=== PATIENT | female | born 1990 | race Caucasian/White ===

== ENCOUNTER 2019-12-24 17:16 | Emergency (ER) | payer SELFPAY ==
[2019-12-24] MEDS ORDERED: CEPHALEXIN 500 MG CAPSULE PO ONE (17:56)
--- NOTE | 2019-12-24 17:58 | ER Document Report ---
ED Medical Screen (RME) - General Chief Complaint: Leg Injury Stated Complaint: LEFT LEG PAIN, SWELLING Time Seen by Provider: 12/24/19 17:51 Mode of Arrival: Ambulatory Information source: Patient Notes: HPI; 29-year-old female with no previous medical problems presents emergency room with a questionable insect bite to her left calf that she noticed 2 days ago. Increasing pain and swelling today. Also complaining of pain in her left groin area that radiates down her leg. Denies any other trauma or injury. Taking ibuprofen with some relief. No medications today. Denies any fevers. No discharge or draining. Tetanus is up-to-date. PE: Alert and oriented x3. Mild distress noted. 4 x 3 cm area of erythema to her left lower calf. Warm but nontender to palpation. No active discharge or draining noted. Positive left pedal pulse. I have greeted and performed a rapid initial assessment of this patient. A comprehensive ED assessment and evaluation of the patient, analysis of test results and completion of the medical decision making process will be conducted by additional ED providers. I have specifically instructed the patient or family members with the patient to immediately return to any nursing staff should anything change in the patient's condition or with their chief complaint. TRAVEL OUTSIDE OF THE [place] IN LAST 30 DAYS: No - Related Data Allergies/Adverse Reactions: No Known Allergies Allergy (Unverified 12/24/19 17:46) Past Medical History - Social History Frequency of alcohol use: None Drug Abuse: Marijuana Past Surgical History: Reports: Hx Abdominal Surgery - intusseption repair, Hx Appendectomy, Hx Breast Surgery Physical Exam - Vital signs Vitals: Temp Pulse Resp BP Pulse Ox 98.5 F 68 16 134/76 H 100 12/24/19 17:24 12/24/19 17:24 12/24/19 17:24 12/24/19 17:24 12/24/19 17:24 Course - Vital Signs Vital signs: Temp Pulse Resp BP Pulse Ox 98.5 F 68 16 134/76 H 100 12/24/19 17:47 12/24/19 17:24 12/24/19 17:24 12/24/19 17:24 12/24/19 17:24
[2019-12-24] MEDS ORDERED: DEXAMETHASONE 4 MG TABLET PO ONE (18:33)
--- NOTE | 2019-12-24 18:34 | ER Document Report ---
HPI - HPI Patient complains to provider of: Insect bite Time Seen by Provider: 12/24/19 17:51 Onset: Other - 3 days Onset/Duration: Worse Quality of pain: Achy Pain Level: 3 Context: Patient states that she was bit by an insect 3 days ago. Patient denies any possible tick bite. Patient states the area of redness has started to increase around the insect bite. Patient complains of left knee and left groin pain. Patient does state she has been holding her leg elevated in an awkward position to prevent pressure being applied to the insect bite. Patient denies any fever. Associated Symptoms: Other - Insect bite. denies: Fever Exacerbated by: Denies Relieved by: Denies Similar symptoms previously: No Recently seen / treated by doctor: No - ROS ROS below otherwise negative: Yes Systems Reviewed and Negative: Yes All other systems reviewed and negative - CONSTITUTIONAL Constitutional: DENIES: Fever, Chills - NEURO Neurology: DENIES: Weakness - MUSCULOSKELETAL Musculoskeletal: REPORTS: Extremity pain - left groin to knee - DERM Skin Color: Erythema Notes: Insect bite Past Medical History - General Information source: Patient - Social History Smoking Status: Former Smoker Frequency of alcohol use: None Drug Abuse: Marijuana Occupation: None Lives with: Family Family History: Reviewed & Not Pertinent Patient has homicidal ideation: No - Medical History Medical History: Negative Past Surgical History: Reports: Hx Abdominal Surgery - intusseption repair, Hx Appendectomy, Hx Breast Surgery Vertical Provider Document - CONSTITUTIONAL Agree With Documented VS: Yes Exam Limitations: No Limitations General Appearance: WD/WN, No Apparent Distress - INFECTION CONTROL TRAVEL OUTSIDE OF THE [place] IN LAST 30 DAYS: No - HEENT HEENT: Atraumatic, Normal ENT Exam, Normocephalic - NECK Neck: Normal Inspection, Supple. negative: Lymphadenopathy-Left, Lymphadenopathy-Right - RESPIRATORY Respiratory: Breath Sounds Normal, No Respiratory Distress - CARDIOVASCULAR Cardiovascular: Regular Rate, Regular Rhythm Pulses: Normal: Dorsalis pedis - BACK Back: Normal Inspection - MUSCULOSKELETAL/EXTREMETIES Musculoskeletal/Extremeties: MAEW, FROM, Non-Tender - NEURO Level of Consciousness: Awake, Alert, Appropriate Motor/Sensory: No Motor Deficit - DERM Integumentary: Warm, Dry. negative: Abscess Notes: Insect bite to posterior left ankle with surrounding erythema, no fluctuance, no calor Course - Re-evaluation Re-evalutation: 12/24/19 18:35 Patient with what appears to be swollen insect bite to posterior left ankle with mild surrounding erythema. Patient adamant that it was not a tick bite. Will treat with topical steroids and cephalexin at this time for possible early cellulitis. No concern for drainable abscess. No evidence of lymphangitis. Good return precautions discussed. Patient verbalized understanding and is agreeable with discharge plan of care. - Vital Signs Vital signs: Temp Pulse Resp BP Pulse Ox 98.5 F 68 16 134/76 H 100 12/24/19 17:47 12/24/19 17:24 12/24/19 17:24 12/24/19 17:24 12/24/19 17:24 Discharge - Discharge Clinical Impression: Insect bite Qualifiers: Encounter type: initial encounter Site of insect bite: ankle Laterality: left Qualified Code(s): S90.562A - Insect bite (nonvenomous), left ankle, initial encounter Condition: Stable Disposition: HOME, SELF-CARE Instructions: Cephalexin ([facility]), Topical Steroid Cream or Ointment ([facility]), Steroid Medication, Swollen Insect Bite or Sting ([facility]) Additional Instructions: Return immediately for any new or worsening symptoms Followup with your primary care provider, call tomorrow to make a followup appointment Prescriptions: Triamcinolone Acetonide [Aristocort 0.1% Cream] 1 applic TP TID #60 gm Cephalexin Monohydrate [Keflex 500 mg Capsule] 500 mg PO Q6H 5 Days #20 capsule Referrals: [facility] [Provider Group] - Follow up as needed
[2019-12-24 19:11] VITALS: BP 132/72
== END 2019-12-24 19:09 | disposition home or self-care (01) ==
LOC: ER 17:16
DX: S90.562A Insect bite (nonvenomous), left ankle, initial encounter (principal); W57.XXXA Bitten or stung by nonvenomous insect and other nonvenomous arthropods, initial encounter
CPT/HCPCS: 99281; J8540